=== PATIENT | male | born 2000 | race African-American/Black ===

== ENCOUNTER 2021-12-30 19:12 | Emergency (ER) | payer OTHER ==
[2021-12-30] MEDS ORDERED: AMOXICILLIN 500 MG (POLYMOX) CAP PO STA (19:52)
[2021-12-30] MEDS ORDERED: AMOX500C2 PO (19:56)
[2021-12-30] MEDS ORDERED: ACHD5005 PO (19:56)
--- NOTE | 2021-12-30 19:56 | ED EENT ---
History of Present Illness General Chief Complaint: Dental Problems/Pain Stated Complaint: TOOTHACHE Source: patient Exam Limitations: no limitations (NAOMI HERNANDEZ APRN) History of Present Illness Date Seen by Provider: Dec 30, 2021 Time Seen by Provider: 19:53 Initial Comments To ER with reports of left upper molar pain since last night. Has been using ibuprofen and Orajel without relief. Has an appoint with Dr. Merino from dentistry on Tuesday of this week. Timing/Duration: gradual Severity: moderate Location: dental Prearrival Treatment: no prearrival treatment Associated Symptoms: denies symptoms (NAOMI HERNANDEZ APRN) Allergies and Home Medications Allergies Coded Allergies: No Known Drug Allergies (Unverified , 12/30/21) Patient Home Medication List Home Medication List Reviewed: Yes (NAOMI HERNANDEZ APRN) Amoxicillin (Amoxicillin) 500 Mg Capsule, 500 MG PO TID Prescribed by: NAOMI HERNANDEZ on 12/30/211955 Hydrocodone/Acetaminophen (Hydrocodone-Acetamin 5-325 mg) 1 Each Tablet, 1 TAB PO Q4H PRN for PAIN-MODERATE (5-7) Prescribed by: NAOMI HERNANDEZ on 12/30/211955 Review of Systems Review of Systems Constitutional: see HPI Eyes: No Symptoms Reported Ears: No Symptoms Reported Nose: no symptoms reported Mouth: see HPI, pain Throat: no symptoms reported Respiratory: no symptoms reported Cardiovascular: no symptoms reported Musculoskeletal: no symptoms reported Skin: no symptoms reported (NAOMI HERNANDEZ APRN) Physical Exam Vital Signs Vital Signs - First Documented 12/30/21 19:36 Temp 36.5 Pulse 60 Resp 18 B/P (MAP) 136/84 (101) Pulse Ox 99 O2 Delivery Room Air (ROB CLAYA K DO) Height, Weight, BMI Height: '" Weight: lbs. oz. kg; BMI Method: General Appearance: WD/WN, no apparent distress Eyes: bilateral eye normal inspection, bilateral eye PERRL, bilateral eye EOMI Ears: bilateral ear auricle normal, bilateral ear canal normal, bilateral ear TM normal Mouth/Throat: other (Has a fractured and carious right upper molar but it is nontender. His left upper molar which is tender but without fluctuant abscess does not have any grossly obvious caries or fracture. No facial swelling.) Neck: non-tender, full range of motion Cardiovascular: regular rate, rhythm, no murmur Respiratory: no respiratory distress, no accessory muscle use Gastrointestinal: normal bowel sounds, non tender Neurologic/Psychiatric: alert, normal mood/affect Skin: normal color, warm/dry (NAOMI HERNANDEZ APRN) Progress/Results/Core Measures Results/Orders Medications Given in ED Current Medications Medications Dose Ordered Sig/Sameer Route Start Time Stop Time Status Last Admin Dose Admin Acetaminophen/ Hydrocodone Bitart 1 ea Q4H PRN PO 12/30/21 20:00 12/30/21 20:12 DC 12/30/21 20:12 1 EA (ABDIEL CLAY DO) Vital Signs/I&O 12/30/21 12/30/21 19:36 20:12 Temp 36.5 36.5 Pulse 60 60 Resp 18 18 B/P (MAP) 136/84 (101) 136/84 Pulse Ox 99 99 O2 Delivery Room Air Room Air (ABDIEL CLAY DO) Departure Impression Primary Impression: Pain, dental Disposition: HOME, SELF-CARE Condition: Stable Departure-Patient Inst. Decision time for Depature: 19:55 (NAOMI HERNANDEZ APRN) Patient Instructions: Dental Pain ED Add. Discharge Instructions: 1. Return to ER for any concerns 2. Antibiotics and pain medication as directed. Follow-up with your dentist as scheduled. All discharge instructions reviewed with patient and/or family. Voiced understanding. Scripts Hydrocodone/Acetaminophen (Hydrocodone-Acetamin 5-325 mg) 1 Each Tablet 1 TAB PO Q4H PRN for PAIN-MODERATE (5-7), #10 TAB Prov: NAOMI HERNANDEZ APRN 12/30/21 Amoxicillin (Amoxicillin) 500 Mg Capsule 500 MG PO TID, #21 CAP 0 Refills Prov: NAOMI HERNANDEZ APRN 12/30/21 ATTENDING PHYSICIAN NOTE: I WAS PHYSICALLY PRESENT ER PHYSICIAN, BUT I WAS NOT INVOLVED IN ANY DECISION MAKING OR ANY CARE OF THIS PATIENT. (ABDIEL CLAY DO) NAOMI HERNANDEZ APRN Dec 30, 2021 19:56 ABDIEL CLAY DO Dec 31, 2021 00:49
[2021-12-30 20:12] VITALS: BP 136/84
== END 2021-12-30 20:12 | disposition home or self-care (01) ==
LOC: ER 19:17
DX: K08.89 Other specified disorders of teeth and supporting structures (principal)
CPT/HCPCS: 99283

== ENCOUNTER 2022-05-22 14:48 | Emergency (ER) | payer OTHER ==
[~2022-05-22] VITALS: Ht 180.3 cm; Wt 81.6 kg
[~2022-05-22 14:48] MED LIST: ACHD5005 PO; AMOX500C2 PO
[2022-05-22] MEDS ORDERED: CLIN150C20 PO (15:30)
[2022-05-22] MEDS ORDERED: CLINDAMYCIN 150 MG (CLEOCIN) CAP PO ONE (15:30)
[2022-05-22] MEDS ORDERED: DICL75TA2 PO (15:30)
--- NOTE | 2022-05-22 15:31 | ED EENT ---
History of Present Illness General Chief Complaint: Dental Problems/Pain Stated Complaint: DENTAL PAIN Source: patient, family (PATEL HERNANDEZ) History of Present Illness Date Seen by Provider: May 22, 2022 Time Seen by Provider: 15:26 Initial Comments This is a 21 year old male that presents for right upper dental pain. He has had symptoms for the last several days and states it is not the first time this has happened. He currently rates his pain as a sharp 7/10 and nothing specifically makes it better or worse. Timing/Duration: gradual Location: mouth, facial, dental Associated Symptoms: denies symptoms (PATEL HERNANDEZ) Allergies and Home Medications Allergies Coded Allergies: No Known Drug Allergies (Unverified , 12/30/21) Patient Home Medication List Home Medication List Reviewed: Yes (PATEL HERNANDEZ) Amoxicillin (Amoxicillin) 500 Mg Capsule, 500 MG PO TID Prescribed by: NAOMI HERNANDEZ on 12/30/211955 Clindamycin HCl (Clindamycin HCl) 150 Mg Capsule, 300 MG PO QID Prescribed by: Jesus Hernandez on 05/22/22 153 Diclofenac Sodium (Diclofenac Sodium) 75 Mg Tablet.dr, 75 MG PO BID Prescribed by: Jesus Hernandez on 05/22/22 153 Hydrocodone/Acetaminophen (Hydrocodone-Acetamin 5-325 mg) 1 Each Tablet, 1 TAB PO Q4H PRN for PAIN-MODERATE (5-7) Prescribed by: NAOMI HERNANDEZ on 12/30/211955 Review of Systems Review of Systems Constitutional: no symptoms reported Eyes: No Symptoms Reported Ears: No Symptoms Reported Nose: no symptoms reported Mouth: see HPI Throat: no symptoms reported Respiratory: no symptoms reported Cardiovascular: no symptoms reported Gastrointestinal: no symptoms reported Musculoskeletal: no symptoms reported Skin: no symptoms reported Neurological: No Symptoms Reported (PATEL HERNANDEZ) Past Ioinwgj-Xhhjvm-Rrmbhg Hx Patient Social History Tobacco Use?: No Substance use?: No Alcohol Use?: Yes Alcohol Frequency: Once in a while Pt feels they are or have been: Unable to obtain (PATEL HERNANDEZ) Immunizations Up To Date Influenza Vaccine Up-to-Date: No; Not Current COVID19 Vaccine National Sales Consultant: MODERNA (PATEL HERNANDEZ) Physical Exam Vital Signs Vital Signs - First Documented 05/22/22 15:05 Temp 36.4 Pulse 58 Resp 14 B/P (MAP) 143/84 (103) Pulse Ox 100 O2 Delivery Room Air (DELROY PATHAK MD) Height, Weight, BMI Height: '" Weight: lbs. oz. kg; BMI Method: General Appearance: WD/WN, no apparent distress Ears: bilateral ear auricle normal, bilateral ear canal normal, bilateral ear TM normal, bilateral ear bleeding, bilateral ear discharge, bilateral ear erythema, bilateral ear foreign body, bilateral ear swelling, bilateral ear tenderness, bilateral ear TM dull, bilateral ear TM red, bilateral ear TM bulging, bilateral ear TM perforation, bilateral ear other Nose: normal inspection Mouth/Throat: normal mouth inspection, dental tenderness, other (Tenderness to palpation over the right upper premolars. There are some overlying facial edema as well) Neck: non-tender, full range of motion Cardiovascular: regular rate, rhythm, no edema Respiratory: chest non-tender, normal breath sounds Neurologic/Psychiatric: air hoist operator II-XII nml as tested, oriented x 3 Skin: normal color, warm/dry (PATEL HERNANDEZ) Departure Impression Primary Impression: Dental abscess Disposition: 01 HOME, SELF-CARE Condition: Stable Departure-Patient Inst. Decision time for Depature: 15:29 (PATEL HERNANDEZ) Referrals: NO,LOCAL PHYSICIAN (PCP/Family) Primary Care Physician Patient Instructions: Dental Pain ED Add. Discharge Instructions: Please follow up with your dentist as planned. Return with any severe changes or worsening of symptoms. All discharge instructions reviewed with patient and/or family. Voiced understanding. Scripts Diclofenac Sodium (Diclofenac Sodium) 75 Mg Tablet.dr 75 MG PO BID for 7 Days, #14 TAB Prov: PATEL HERNANDEZ 05/22/22 Clindamycin HCl (Clindamycin HCl) 150 Mg Capsule 300 MG PO QID for 10 Days, #40 CAP Prov: PATEL HERNANDEZ 05/22/22 ATTENDING PHYSICIAN NOTE: I was physically present as attending physician in the emergency department during the care of this patient, but I was not directly involved in the decision making or delivery of care for this patient. (DELROY PATHAK MD) PATEL HERNANDEZ May 22, 2022 15:31 DELROY PATHAK MD May 23, 2022 13:51
[2022-05-22 16:09] VITALS: BP 143/84
== END 2022-05-22 16:09 | disposition home or self-care (01) ==
LOC: EDUNIT# 14:48 → ER 14:50
DX: K04.7 Periapical abscess without sinus (principal)
CPT/HCPCS: 99284

== ENCOUNTER → 2022-06-09 | Outpatient (CLI) | payer OTHER ==
[~2022-06-09] MED LIST changes: +CLIN150C20 PO; +DICL75TA2 PO
--- NOTE | 2022-06-09 15:28 | Diagnostic Imaging Report ---
CLINICAL INDICATION: Patient with right-sided swelling which moved to the left side and started 1 month ago. EXAM: Axial CT scan of the maxillofacial structures without IV contrast . Coronal and sagittal reformations were performed. Auto Exposure Controls were utilized during the CT exam to meet ALARA standards for radiation dose reduction. COMPARISON: None. FINDINGS: PARANASAL SINUSES: FRONTAL: Unremarkable. ETHMOID: There is minimal mucosal thickening involving the right posterior aspect of the ethmoid sinus. MAXILLARY: Unremarkable. SPHENOID: Unremarkable. OTHER PARANASAL SINUS FINDINGS: None. NASAL SEPTUM: There is mild tortuosity of the nasal septum with roughly 2 mm of rightward nasal septal deviation involving the inferior posterior aspect. VISUALIZED TEMPORAL BONE STRUCTURES: Unremarkable. BONY STRUCTURES: Unremarkable. EXTRACRANIAL SOFT TISSUE/ ORBITS: There is nonspecific mild fat stranding and thickening involving the forehead and right and left sides of the head which is grossly symmetric. IMPRESSION: 1: There is nonspecific mild fat stranding and thickening involving the forehead and right and left sides of the head which is grossly symmetric. There is no bony erosive or destructive process. 2: There is mild ethmoid sinus disease. 3: Tortuous nasal septum is seen. Dictated by: Dictated on workstation # [id number]
== END ==
LOC: RAD 13:15
PROVIDERS: ATTEND Otolaryngology Otolaryngology/Facial Plastic Surgery
DX: J32.2 Chronic ethmoidal sinusitis (principal)
CPT/HCPCS: 70486

== ENCOUNTER → 2023-06-02 | Outpatient (CLI) | payer OTHER ==
[2023-06-02 14:35] LABS: ALBUMIN 4.3 GM/DL (3.2-4.5)
[2023-06-02 14:36] LABS: POTASSIUM 4.2 MMOL/L (3.6-5.0)
[2023-06-02 14:37] LABS: CALCIUM 9.2 MG/DL (8.5-10.1)
[2023-06-02 14:38] LABS: TOTAL PROTEIN 6.8 GM/DL (6.4-8.2)
[2023-06-02 14:40] LABS: BILIRUBIN,TOTAL 1.8 MG/DL (0.1-1.0)
[2023-06-02 14:42] LABS: CREATININE SERUM 1.17 MG/DL (0.60-1.30)
== END | disposition home or self-care (01) ==
LOC: LABNPT 14:24
PROVIDERS: ATTEND Nurse Practitioner Family
DX: Z01.89 Encounter for other specified special examinations (principal)
CPT/HCPCS: 80053; 82550